=== PATIENT | female | born 1975 | race Caucasian/White ===

== ENCOUNTER 2016-12-12 14:19 | Emergency (ER) | payer OTHER ==
[~2016-12-12] VITALS: Ht 170.2 cm; Wt 113.4 kg
[2016-12-12 14:29] VITALS: BP 174/97
[2016-12-12] MEDS ORDERED: KETOROLAC TROMETH 60MG/2ML VIAL IM ONE (16:00)
== END 2016-12-12 17:21 | disposition home or self-care (01) ==
LOC: ER 14:28
DX: S16.1XXA Strain of muscle, fascia and tendon at neck level, initial encounter (principal); S39.012A Strain of muscle, fascia and tendon of lower back, initial encounter; S00.03XA Contusion of scalp, initial encounter; M50.322 Other cervical disc degeneration at C5-C6 level; S50.812A Abrasion of left forearm, initial encounter; V49.9XXA Car occupant (driver) (passenger) injured in unspecified traffic accident, initial encounter; Y93.89 Activity, other specified; Y99.8 Other external cause status; Y92.488 Other paved roadways as the place of occurrence of the external cause
CPT/HCPCS: 70450; 72100; 72125; 96372; 99284; J1885

== ENCOUNTER 2019-01-19 18:46 | Emergency (ER) | payer OTHER ==
[~2019-01-19] VITALS: Ht 180.3 cm; Wt 136.1 kg
[2019-01-19 21:04] VITALS: BP 135/90
[2019-01-19] MEDS ORDERED: HYDROcodone-ACET 10/325MG TAB PO ONE ×2 (21:15→21:45)
[2019-01-19] MEDS ORDERED: BACLOFEN 10 MG TAB PO ONE ×2 (21:15→21:45)
[2019-01-19] MEDS ORDERED: DexAMETHasone SOD PHOS 10MG/1ML VIAL INJ IM ONE ×2 (21:15→21:45)
== END 2019-01-19 22:34 | disposition home or self-care (01) ==
LOC: ER 18:46
DX: S43.422A Sprain of left rotator cuff capsule, initial encounter (principal); S50.812A Abrasion of left forearm, initial encounter; Z98.51 Tubal ligation status; X58.XXXA Exposure to other specified factors, initial encounter; Y93.89 Activity, other specified; Y92.89 Other specified places as the place of occurrence of the external cause; Y99.8 Other external cause status
CPT/HCPCS: 29105; 73030; 96372; 99283; J1100

== ENCOUNTER 2019-08-18 19:59 | Emergency (ER) | payer MEDICAID, OTHER ==
[~2019-08-18] VITALS: Ht 182.9 cm; Wt 136.1 kg
[2019-08-18 22:36] VITALS: BP 140/85
== END 2019-08-18 23:39 | disposition home or self-care (01) ==
LOC: ER 20:04
DX: S61.211A Laceration without foreign body of left index finger without damage to nail, initial encounter (principal); S61.213A Laceration without foreign body of left middle finger without damage to nail, initial encounter; W26.0XXA Contact with knife, initial encounter; Y93.89 Activity, other specified; Y92.89 Other specified places as the place of occurrence of the external cause; Y99.8 Other external cause status
CPT/HCPCS: 12001